=== PATIENT | female | born 1955 | race Caucasian/White ===

== ENCOUNTER 2017-07-13 05:11 | Emergency (ER) | payer OTHER ==
[2017-07-13] MEDS ORDERED: Ondansetron ODT 4 MG TAB ONE (05:20)
[2017-07-13] MEDS ORDERED: Sodium Chloride 0.9% 1,000 ML ONE (05:37)
[2017-07-13] MEDS ORDERED: Promethazine HCl 25 MG/ML VIAL ONE (05:37)
[2017-07-13 05:49] LABS: #Lymphocytes 1.6 thou/uL (1.20-3.40); #Monocytes 0.5 thou/uL (0.11-0.59); #Neutrophils 9.9 thou/uL (1.40-6.50); %Basophils 0.4 % (0.0-1.0); %Eosinophils 0.4 % (0.0-10.0); %Lymphocytes 13.3 % (21.0-51.0); %Monocytes 3.9 % (0.0-10.0); %Neutrophils 82.1 % (42.0-75.0); Hemoglobin 15.4 g/dL (12.0-16.0); Mean Corpuscular HGB CONC 31.6 g/dL (32.0-36.0); Mean Platelet Volume 7.2 fL (7.4-10.4); Platelet Count 188 thou/uL (130-400); RBC Distribution Width 11.5 % (11.5-14.5); Red Blood Cell (RBC) Count 4.95 mill/uL (4.20-5.40)
[2017-07-13 06:03] LABS: ALT (SGPT) 18 U/L (8-55); AST (SGOT) 22 U/L (5-34); Albumin 4.2 g/dL (3.4-4.8); Alkaline Phosphatase 159 U/L (40-150); Anion Gap 16 mmol/L (10-20); BUN (Urea Nitrogen) 11 mg/dL (9.8-20.1); Bilirubin, Total 0.6 mg/dL (0.2-1.2); Calc. Creatinine Clearance 0 mL/min (70-130); Calcium 9.6 mg/dL (7.8-10.44); Carbon Dioxide 22 mmol/L (23-31); Chloride 104 mmol/L (98-107); Estimated GFR-MDRD 61; Globulin 3.5 g/dL (2.4-3.5); Glucose 141 mg/dL (80-115); Lipase 16 U/L (8-78); Potassium 4.1 mmol/L (3.5-5.1); Protein, Total 7.7 g/dL (6.0-8.3); Sodium 138 mmol/L (136-145)
[2017-07-13] MEDS ORDERED: Ondansetron HCl/PF 4 MG/2 ML Vial ONE (06:56)
[2017-07-13 07:30] LABS: Bilirubin Negative (Negative); Blood, Urine Trace (Negative); Clarity Clear (Clear); Glucose, Urine (Dipstick) Negative (Negative); Leukocyte Negative (Negative); Nitrite Negative (Negative); Protein, Urine (Dipstick) Negative (Neg-Trace); Specific Gravity, Urine 1.015 (1.005-1.030); Urobilinogen 0.2 mg/dL (0.2-1.0); pH, Urine 7.5 (5.0-9.0)
[2017-07-13 07:34] LABS: RBC/HPF 0-3 HPF (0-3); Squamous Epithelial 0-3 HPF (0-3); WBC/HPF 0-3 HPF (0-3)
[2017-07-13 07:35] LABS: Bacteria/HPF Rare-Few HPF (None Seen)
== END 2017-07-13 08:36 | disposition home or self-care (01) ==
LOC: NAV ERS 05:11
DX: K52.9 Noninfective gastroenteritis and colitis, unspecified (principal); I10 Essential (primary) hypertension; Z87.891 Personal history of nicotine dependence
CPT/HCPCS: 80053; 81003; 81015; 83690; 85025; 96365; 96375; J2405; J2550; J7050; Q0162

== ENCOUNTER 2019-09-13 08:55 | Emergency (ER) | payer OTHER ==
[2019-09-13] MEDS ORDERED: Iopamidol 370 76% 100 ML VIAL ONE (09:00)
[2019-09-13] MEDS ORDERED: Ketorolac Tromethamine 30 MG/ML VIAL ONE (09:09)
[2019-09-13] MEDS ORDERED: Ondansetron PF 4 MG/2 ML Vial ONE (09:09)
[2019-09-13 09:32] LABS: Bilirubin Negative (Negative); Blood, Urine Trace (Negative); Glucose, Urine (Dipstick) Negative (Negative); Leukocyte Negative (Negative); Nitrite Negative (Negative); Protein, Urine (Dipstick) Negative (Neg-Trace); Urobilinogen 0.2 mg/dL (Less than 2)
[2019-09-13 09:38] LABS: #Basophils 0.1 thou/uL (0.0-0.2); #Eosinphils 0.1 thou/uL (0.0-0.7); #Monocytes 0.5 thou/uL (0.11-0.59); #Neutrophils 11.9 thou/uL (1.40-6.50); %Basophils 0.7 % (0.0-1.0); %Eosinophils 0.5 % (0.0-10.0); %Lymphocytes 7.3 % (21.0-51.0); %Monocytes 3.7 % (0.0-10.0); %Neutrophils 87.9 % (42.0-75.0); Hemoglobin 14.7 g/dL (12.0-16.0); Mean Corpuscular HGB CONC 32.8 g/dL (32.0-36.0); Mean Corpuscular Hemoglobin 31.3 pg (27.0-31.0); Mean Corpuscular Volume 95.4 fL (78.0-98.0); Mean Platelet Volume 7.7 fL (7.4-10.4); Platelet Count 192 thou/uL (130-400); RBC Distribution Width 11.7 % (11.5-14.5); Red Blood Cell (RBC) Count 4.71 mill/uL (4.20-5.40); White Blood Cell (WBC) Count 13.6 thou/uL (4.8-10.8)
[2019-09-13 09:40] LABS: Clarity SL HAZY (Clear)
[2019-09-13 09:43] LABS: RBC/HPF 0-3 HPF (0-3); WBC/HPF 0-3 HPF (0-3)
[2019-09-13] MEDS ORDERED: Promethazine HCl 25 MG/ML VIAL ONE (09:43)
[2019-09-13 09:50] LABS: ALT (SGPT) 29 U/L (8-55); AST (SGOT) 25 U/L (5-34); Alkaline Phosphatase 162 U/L (40-110); Anion Gap 14 mmol/L (10-20); BUN (Urea Nitrogen) 9 mg/dL (9.8-20.1); Bilirubin, Total 0.5 mg/dL (0.2-1.2); Calc. Creatinine Clearance 0 mL/min (70-130); Calcium 9.1 mg/dL (7.8-10.44); Carbon Dioxide 22 mmol/L (23-31); Chloride 108 mmol/L (98-107); Estimated GFR-MDRD 73; Globulin 2.9 g/dL (2.4-3.5); Glucose 115 mg/dL (80-115); Potassium 3.9 mmol/L (3.5-5.1); Protein, Total 6.9 g/dL (6.0-8.3); Sodium 140 mmol/L (136-145)
--- NOTE | 2019-09-13 10:05 | CT ---
EXAM: CT Abdomen Pelvis W Con PROVIDED CLINICAL HISTORY: Right lower quadrant pain COMPARISON: None FINDINGS: Visualized lung bases are free of significant opacity. Small hiatal hernia is seen. The liver, spleen, pancreas, kidneys and adrenal glands demonstrate an unremarkable CT appearance. The appendix is mildly dilated, fluid-filled and demonstrates mural enhancement and surrounding fat s tranding. There is no bowel dilatation, significant free intraperitoneal fluid, free intraperitoneal air or additional inflammatory fat stranding evident. Vascular calcifications are seen. The osseous structures demonstrate no concerning lytic or blastic lesions. IMPRESSION: Findings compatible with acute appendicitis.
[2019-09-13] MEDS ORDERED: Sodium Chloride 0.9% 100 ML ONE (10:21)
[2019-09-13] MEDS ORDERED: Piperacillin/Tazobactam 3.375 GM VIAL ONE (10:21)
== END 2019-09-13 10:49 | disposition short-term general hospital (02) ==
LOC: NAV ERS 08:55
DX: K35.80 Unspecified acute appendicitis (principal); I10 Essential (primary) hypertension; E78.00 Pure hypercholesterolemia, unspecified; E78.5 Hyperlipidemia, unspecified; F17.210 Nicotine dependence, cigarettes, uncomplicated; Z71.6 Tobacco abuse counseling; Z79.899 Other long term (current) drug therapy
CPT/HCPCS: 74177; 80053; 81003; 81015; 85025; 96365; 96375; J1885; J2405; J2543; J2550; J3490; Q9967

== ENCOUNTER 2021-10-19 09:59 | Outpatient (CLI) | payer MEDICARE | END 2021-10-19 10:00 | disposition home or self-care (01) | LOC: NAV CT 09:59 | PROVIDERS: ATTEND Family Medicine | DX: Z01.818 Encounter for other preprocedural examination (principal); I65.23 Occlusion and stenosis of bilateral carotid arteries; I63.512 Cerebral infarction due to unspecified occlusion or stenosis of left middle cerebral artery | CPT/HCPCS: 36415; 70498; 82565 ==

== ENCOUNTER 2021-12-29 17:12 | Emergency (ER) | payer MEDICARE ==
[2021-12-29] MEDS ORDERED: Pantoprazole 40 MG VIAL ONE (17:54)
[2021-12-29] MEDS ORDERED: Sodium Chloride 0.9% 1,000 ML ONE (17:54)
[2021-12-29] MEDS ORDERED: Promethazine HCl 25 MG/ML VIAL ONE (17:54)
[2021-12-29 18:07] LABS: #Basophils 0.1 thou/uL (0.0-0.2); #Eosinphils 0.1 thou/uL (0.0-0.7); #Lymphocytes 1.6 thou/uL (1.20-3.40); #Monocytes 0.6 thou/uL (0.11-0.59); #Neutrophils 3.8 thou/uL (1.40-6.50); %Basophils 1.2 % (0.0-1.0); %Eosinophils 1.4 % (0.0-10.0); %Lymphocytes 26.6 % (21.0-51.0); %Monocytes 9.3 % (0.0-10.0); %Neutrophils 61.6 % (42.0-75.0); Hemoglobin 15.6 g/dL (12.0-16.0); Mean Corpuscular HGB CONC 31.5 g/dL (32.0-36.0); Mean Corpuscular Hemoglobin 31.1 pg (27.0-31.0); Mean Corpuscular Volume 98.8 fL (78.0-98.0); Mean Platelet Volume 8.4 fL (7.4-10.4); Platelet Count 198 thou/uL (130-400); RBC Distribution Width 11.8 % (11.5-14.5); White Blood Cell (WBC) Count 6.1 thou/uL (4.8-10.8)
[2021-12-29 18:23] LABS: ALT (SGPT) 22 U/L (8-55); AST (SGOT) 20 U/L (5-34); Albumin 3.8 g/dL (3.4-4.8); Alkaline Phosphatase 131 U/L (40-110); Anion Gap 18 mmol/L (10-20); BUN (Urea Nitrogen) 8 mg/dL (9.8-20.1); Bilirubin, Total 0.7 mg/dL (0.2-1.2); Calc. Creatinine Clearance 0 mL/min (70-130); Calcium 9.6 mg/dL (7.8-10.44); Carbon Dioxide 20 mmol/L (23-31); Chloride 107 mmol/L (98-107); Globulin 3.6 g/dL (2.4-3.5); Glucose 94 mg/dL (80-115); Lipase 13 U/L (8-78); Potassium 3.9 mmol/L (3.5-5.1); Protein, Total 7.4 g/dL (5.8-8.1); Sodium 141 mmol/L (136-145)
[2021-12-29 18:42] LABS: Clarity SL HAZY (Clear)
[2021-12-29 18:43] LABS: Bilirubin Negative (Negative); Blood, Urine Trace (Negative); Glucose, Urine (Dipstick) Negative (Negative); Ketone, Urine Negative (Negative); Leukocyte Trace (Negative); Nitrite Negative (Negative); Protein, Urine (Dipstick) Negative (Neg-Trace); Specific Gravity, Urine 1.015 (1.005-1.030); Urobilinogen 0.2 mg/dL (Less than 2)
[2021-12-29 18:51] LABS: RBC/HPF 0-3 HPF (0-3); Squamous Epithelial 0-3 HPF (0-3)
[2021-12-29] MEDS ORDERED: Acetaminophen 500 MG TAB ONE (19:15)
== END 2021-12-29 19:26 | disposition home or self-care (01) ==
LOC: NAV ERS 17:12
DX: R10.13 Epigastric pain (principal); R19.7 Diarrhea, unspecified; R11.2 Nausea with vomiting, unspecified; I10 Essential (primary) hypertension; E03.9 Hypothyroidism, unspecified; E78.5 Hyperlipidemia, unspecified; E78.00 Pure hypercholesterolemia, unspecified; F17.210 Nicotine dependence, cigarettes, uncomplicated; Z86.73 Personal history of transient ischemic attack (TIA), and cerebral infarction without residual deficits; Z79.01 Long term (current) use of anticoagulants; Z79.899 Other long term (current) drug therapy
CPT/HCPCS: 80053; 81003; 81015; 83605; 83690; 85025; 96365; 96375; C9113; J2550; J7050

== ENCOUNTER 2021-12-31 07:37 | Emergency (ER) | payer MEDICARE ==
[2021-12-31] MEDS ORDERED: Sodium Chloride 0.9% 1,000 ML ONE (08:36)
[2021-12-31] MEDS ORDERED: Pantoprazole 40 MG VIAL ONE (08:37)
[2021-12-31] MEDS ORDERED: Promethazine HCl 25 MG/ML VIAL ONE ×2 (08:37→10:21)
[2021-12-31] MEDS ORDERED: Sodium Chloride 0.9% 100 ML ONE ×2 (08:38→10:21)
[2021-12-31 09:01] LABS: #Lymphocytes 1.1 thou/uL (1.20-3.40); #Monocytes 0.4 thou/uL (0.11-0.59); #Neutrophils 5.7 thou/uL (1.40-6.50); %Basophils 0.5 % (0.0-1.0); %Eosinophils 0.5 % (0.0-10.0); %Monocytes 5.2 % (0.0-10.0); %Neutrophils 78.8 % (42.0-75.0); Hemoglobin 15.7 g/dL (12.0-16.0); Mean Corpuscular HGB CONC 31.5 g/dL (32.0-36.0); Mean Corpuscular Hemoglobin 30.7 pg (27.0-31.0); Mean Corpuscular Volume 97.5 fL (78.0-98.0); Mean Platelet Volume 8.3 fL (7.4-10.4); Platelet Count 198 thou/uL (130-400); RBC Distribution Width 11.5 % (11.5-14.5); Red Blood Cell (RBC) Count 5.11 mill/uL (4.20-5.40); White Blood Cell (WBC) Count 7.2 thou/uL (4.8-10.8)
[2021-12-31 09:16] LABS: ALT (SGPT) 21 U/L (8-55); AST (SGOT) 20 U/L (5-34); Albumin 3.8 g/dL (3.4-4.8); Alkaline Phosphatase 138 U/L (40-110); Anion Gap 18 mmol/L (10-20); BUN (Urea Nitrogen) 8 mg/dL (9.8-20.1); Bilirubin, Total 0.9 mg/dL (0.2-1.2); Calc. Creatinine Clearance 0 mL/min (70-130); Calcium 9.9 mg/dL (7.8-10.44); Carbon Dioxide 21 mmol/L (23-31); Chloride 107 mmol/L (98-107); Globulin 3.4 g/dL (2.4-3.5); Glucose 95 mg/dL (80-115); Potassium 4.1 mmol/L (3.5-5.1); Protein, Total 7.2 g/dL (5.8-8.1); Sodium 142 mmol/L (136-145)
== END 2021-12-31 11:02 | disposition home or self-care (01) ==
LOC: NAV ERS 07:37
DX: R11.0 Nausea (principal); F43.0 Acute stress reaction; R19.7 Diarrhea, unspecified; I10 Essential (primary) hypertension; E03.9 Hypothyroidism, unspecified; E78.5 Hyperlipidemia, unspecified; E78.00 Pure hypercholesterolemia, unspecified; F17.210 Nicotine dependence, cigarettes, uncomplicated; Z86.73 Personal history of transient ischemic attack (TIA), and cerebral infarction without residual deficits; Z79.02 Long term (current) use of antithrombotics/antiplatelets; Z79.890 Hormone replacement therapy; Z79.899 Other long term (current) drug therapy
CPT/HCPCS: 80053; 83605; 83690; 85025; 96365; 96366; 96367; C9113; J2550; J7050

== ENCOUNTER 2022-01-08 07:45 | Emergency (ER) | payer MEDICARE ==
[2022-01-08] MEDS ORDERED: Sodium Chloride 0.9% 100 ML ONE (08:31)
[2022-01-08] MEDS ORDERED: Pantoprazole 40 MG VIAL ONE (08:31)
[2022-01-08] MEDS ORDERED: Sodium Chloride 0.9% 1,000 ML ONE (08:31)
[2022-01-08] MEDS ORDERED: Promethazine HCl 25 MG/ML VIAL ONE (08:43)
[2022-01-08 08:46] LABS: #Basophils 0.1 thou/uL (0.0-0.2); #Eosinphils 0.1 thou/uL (0.0-0.7); #Lymphocytes 1.2 thou/uL (1.20-3.40); #Monocytes 0.4 thou/uL (0.11-0.59); #Neutrophils 3.4 thou/uL (1.40-6.50); %Basophils 1.1 % (0.0-1.0); %Eosinophils 1.4 % (0.0-10.0); %Lymphocytes 23.6 % (21.0-51.0); %Monocytes 7.1 % (0.0-10.0); %Neutrophils 66.7 % (42.0-75.0); Hemoglobin 15.5 g/dL (12.0-16.0); Mean Corpuscular HGB CONC 31.9 g/dL (32.0-36.0); Mean Corpuscular Volume 97.2 fL (78.0-98.0); Mean Platelet Volume 8.4 fL (7.4-10.4); Platelet Count 194 thou/uL (130-400); RBC Distribution Width 11.3 % (11.5-14.5)
[2022-01-08 09:02] LABS: ALT (SGPT) 19 U/L (8-55); AST (SGOT) 18 U/L (5-34); Albumin 3.8 g/dL (3.4-4.8); Alkaline Phosphatase 142 U/L (40-110); Anion Gap 16 mmol/L (10-20); BUN (Urea Nitrogen) 10 mg/dL (9.8-20.1); Bilirubin, Total 0.5 mg/dL (0.2-1.2); Calc. Creatinine Clearance 0 mL/min (70-130); Calcium 9.9 mg/dL (7.8-10.44); Carbon Dioxide 24 mmol/L (23-31); Chloride 103 mmol/L (98-107); Globulin 3.3 g/dL (2.4-3.5); Glucose 95 mg/dL (80-115); Lipase 11 U/L (8-78); Magnesium 1.7 mg/dL (1.6-2.6); Potassium 4.1 mmol/L (3.5-5.1); Protein, Total 7.1 g/dL (5.8-8.1); Sodium 139 mmol/L (136-145)
[2022-01-08 09:08] LABS: Clarity Clear (Clear); Specific Gravity, Urine 1.015 (1.005-1.030)
[2022-01-08 09:09] LABS: Bilirubin Negative (Negative); Blood, Urine Negative (Negative); Glucose, Urine (Dipstick) Negative (Negative); Ketone, Urine Negative (Negative); Leukocyte Trace (Negative); Nitrite Negative (Negative); Protein, Urine (Dipstick) Negative (Neg-Trace); Urobilinogen 0.2 mg/dL (Less than 2)
[2022-01-08 09:25] LABS: RBC/HPF None Seen HPF (0-3)
[2022-01-08 09:26] LABS: Bacteria/HPF Rare-Few HPF (None Seen); Squamous Epithelial 0-3 HPF (0-3); WBC/HPF 0-3 HPF (0-3)
== END 2022-01-08 10:33 | disposition home or self-care (01) ==
LOC: NAV ERS 07:45
DX: R11.2 Nausea with vomiting, unspecified (principal); R29.700 NIHSS score 0; I10 Essential (primary) hypertension; E03.9 Hypothyroidism, unspecified; E78.5 Hyperlipidemia, unspecified; E78.00 Pure hypercholesterolemia, unspecified; Z86.73 Personal history of transient ischemic attack (TIA), and cerebral infarction without residual deficits; Z79.899 Other long term (current) drug therapy
CPT/HCPCS: 80053; 81003; 81015; 83690; 83735; 84443; 85025; 93005; 96361; 96365; 96375; C9113; J2550; J7050

== ENCOUNTER 2022-02-25 16:13 | Emergency (ER) | payer MEDICARE ==
[2022-02-25] MEDS ORDERED: Sodium Chloride 0.9% 1,000 ML ONE (16:29)
[2022-02-25] MEDS ORDERED: Labetalol HCl 100 MG/20 ML VIAL ONE (16:29)
[2022-02-25 17:33] LABS: #Basophils 0.1 thou/uL (0.0-0.2); #Eosinphils 0.2 thou/uL (0.0-0.7); #Lymphocytes 1.5 thou/uL (1.20-3.40); #Monocytes 0.5 thou/uL (0.11-0.59); #Neutrophils 4.4 thou/uL (1.40-6.50); %Basophils 0.8 % (0.0-1.0); %Eosinophils 2.8 % (0.0-10.0); %Lymphocytes 22.5 % (21.0-51.0); %Monocytes 8.2 % (0.0-10.0); %Neutrophils 65.7 % (42.0-75.0); Hemoglobin 13.3 g/dL (12.0-16.0); Mean Corpuscular HGB CONC 31.2 g/dL (32.0-36.0); Mean Corpuscular Hemoglobin 30.9 pg (27.0-31.0); Mean Platelet Volume 7.9 fL (7.4-10.4); Platelet Count 194 thou/uL (130-400); RBC Distribution Width 12.8 % (11.5-14.5); White Blood Cell (WBC) Count 6.6 thou/uL (4.8-10.8)
[2022-02-25 18:06] LABS: ALT (SGPT) 22 U/L (8-55); AST (SGOT) 18 U/L (5-34); Albumin 3.3 g/dL (3.4-4.8); Alkaline Phosphatase 133 U/L (40-110); Anion Gap 16 mmol/L (10-20); BUN (Urea Nitrogen) 7 mg/dL (9.8-20.1); Bilirubin, Total 0.4 mg/dL (0.2-1.2); Calc. Creatinine Clearance 0 mL/min (70-130); Calcium 8.6 mg/dL (7.8-10.44); Carbon Dioxide 20 mmol/L (23-31); Chloride 113 mmol/L (98-107); Estimated GFR 87; Globulin 2.7 g/dL (2.4-3.5); Glucose 120 mg/dL (80-115); Lipase 16 U/L (8-78); Potassium 3.5 mmol/L (3.5-5.1); Sodium 145 mmol/L (136-145)
[2022-02-25] MEDS ORDERED: Aspirin Chewable 81 MG TAB ONE (18:22)
[2022-02-25 18:28] LABS: Bilirubin Negative (Negative); Blood, Urine Trace (Negative); Glucose, Urine (Dipstick) Negative (Negative); Ketone, Urine Negative (Negative); Leukocyte Large (Negative); Nitrite Negative (Negative); Protein, Urine (Dipstick) Negative (Neg-Trace); Specific Gravity, Urine 1.015 (1.005-1.030); Urobilinogen 0.2 mg/dL (Less than 2); pH, Urine 7.5 (5.0-9.0)
[2022-02-25 18:40] LABS: Bacteria/HPF 1+ HPF (None Seen); Clarity SL HAZY (Clear); RBC/HPF 0-3 HPF (0-3); Squamous Epithelial 0-3 HPF (0-3)
[2022-02-25 21:36] LABS: SARS-CoV-2 NAA Rapid Test Not Detected (NotDetected)
== END 2022-02-25 20:36 | disposition short-term general hospital (02) ==
LOC: NAV ERS 16:13
DX: I10 Essential (primary) hypertension (principal); R07.2 Precordial pain; Z20.822 Contact with and (suspected) exposure to COVID-19; E03.9 Hypothyroidism, unspecified; E78.5 Hyperlipidemia, unspecified; Z79.899 Other long term (current) drug therapy
CPT/HCPCS: 71275; 80053; 83690; 84484 ×2; 85025; 85379; 93005; 96361; 96374; 99285; U0002; 81003; 81015; J7050

== ENCOUNTER 2022-03-05 08:57 | Outpatient (CLI) | payer MEDICARE ==
[2022-03-05] MEDS ORDERED: Iopamidol 370 76% 100 ML VIAL ONE (09:00)
== END 2022-03-05 08:58 | disposition home or self-care (01) ==
LOC: NAV CT 08:57
PROVIDERS: ATTEND Psychiatry & Neurology Neurology
DX: I63.532 Cerebral infarction due to unspecified occlusion or stenosis of left posterior cerebral artery (principal)
CPT/HCPCS: 70496; Q9967

== ENCOUNTER 2022-03-08 07:25 | Outpatient (CLI) | payer MEDICARE ==
[2022-03-08 07:51] LABS: Bilirubin Negative (Negative); Blood, Urine Negative (Negative); Clarity Clear (Clear); Glucose, Urine (Dipstick) Negative (Negative); Ketone, Urine Negative (Negative); Leukocyte Small (Negative); Nitrite Negative (Negative); Protein, Urine (Dipstick) Negative (Neg-Trace); Urobilinogen 0.2 mg/dL (Less than 2); pH, Urine 6.5 (5.0-9.0)
[2022-03-08 08:00] LABS: #Basophils 0.1 thou/uL (0.0-0.2); #Eosinphils 0.2 thou/uL (0.0-0.7); #Lymphocytes 1.6 thou/uL (1.20-3.40); #Monocytes 0.5 thou/uL (0.11-0.59); #Neutrophils 3.7 thou/uL (1.40-6.50); %Basophils 1.1 % (0.0-1.0); %Lymphocytes 26.9 % (21.0-51.0); Hemoglobin 13.9 g/dL (12.0-16.0); Mean Corpuscular Hemoglobin 31.1 pg (27.0-31.0); Mean Platelet Volume 7.5 fL (7.4-10.4); Platelet Count 263 thou/uL (130-400); RBC Distribution Width 13.2 % (11.5-14.5); Red Blood Cell (RBC) Count 4.48 mill/uL (4.20-5.40); White Blood Cell (WBC) Count 6.1 thou/uL (4.8-10.8)
[2022-03-08 08:07] LABS: ALT (SGPT) 24 U/L (8-55); AST (SGOT) 24 U/L (5-34); Albumin 3.8 g/dL (3.4-4.8); Alkaline Phosphatase 155 U/L (40-110); Anion Gap 15 mmol/L (10-20); BUN (Urea Nitrogen) 12 mg/dL (9.8-20.1); Bilirubin, Total 0.6 mg/dL (0.2-1.2); Calc. Creatinine Clearance 0 mL/min (70-130); Calcium 9.2 mg/dL (7.8-10.44); Carbon Dioxide 26 mmol/L (23-31); Chloride 105 mmol/L (98-107); Estimated GFR 81; Globulin 2.8 g/dL (2.4-3.5); Glucose 97 mg/dL (80-115); Potassium 4.2 mmol/L (3.5-5.1); Protein, Total 6.6 g/dL (5.8-8.1); Sodium 142 mmol/L (136-145)
[2022-03-08 08:13] LABS: Bacteria/HPF Rare-Few HPF (None Seen); RBC/HPF None Seen HPF (0-3); Squamous Epithelial 0-3 HPF (0-3); WBC/HPF 0-3 HPF (0-3)
[2022-03-08 08:51] LABS: Thyroid Stimulating Hormone 0.9082 uIU/mL (0.35-4.94)
[2022-03-08 12:06] LABS: Cardiac Risk 2.7 (Less than 4.5); Cholesterol 168 mg/dl (< 200 Desired); HDL Cholesterol 63 mg/dL (>60 Neg Risk); LDL Cholesterol, Calculated 72 mg/dL; Triglycerides 166 mg/dL (Less than 150)
[2022-03-08 16:37] LABS: Vitamin D, 25 Hydroxy 36.4 ng/ml (> 30.0)
== END 2022-03-08 07:26 | disposition home or self-care (01) ==
LOC: NAV LAB 07:25
PROVIDERS: ATTEND Family Medicine
DX: E03.9 Hypothyroidism, unspecified (principal); E78.2 Mixed hyperlipidemia; E55.9 Vitamin D deficiency, unspecified; I10 Essential (primary) hypertension
CPT/HCPCS: 36415; 80053; 80061; 81001; 82306; 84443; 85025